=== PATIENT | male | born 1960 | race African-American/Black ===

== ENCOUNTER 2017-06-13 11:12 | Inpatient (IN) | payer OTHER ==
[2017-06-13 12:44] LABS: ADD MAN DIFF? NO
[2017-06-13 12:47] LABS: BASO # 0.1 x10^3/uL (0.0-0.2); BASO % 1 % (0-3); EOS % 0 % (0-3); HEMATOCRIT 43.5 % (39.0-53.0); HEMOGLOBIN 13.7 g/dL (13.0-17.5); LYMPH # 1.2 x10^3/uL (1.0-4.8); LYMPH % 16 % (24-48); MEAN CORPUSCULAR HEMOGLOBIN 23 pg (25-35); MEAN CORPUSCULAR HGB CONC 32 g/dL (31-37); MEAN CORPUSCULAR VOLUME 72 fL (79-100); MONO # 0.4 x10^3/uL (0.0-1.1); MONO % 6 % (0-9); NEUT # 5.8 x10^3uL (1.8-7.7); NEUT % 77 % (31-73); PLATELET COUNT 204 x10^3/uL (140-400); RED BLOOD COUNT 6.07 x10^6/uL (4.30-5.70); RED CELL DISTRIBUTION WIDTH 16.6 % (11.5-14.5); WHITE BLOOD COUNT 7.5 x10^3/uL (4.0-11.0)
[2017-06-13] MEDS: ONDANSETRON PF 4 MG/2 ML VIAL. IV (12:47)
[2017-06-13] MEDS: fentaNYL PF VIAL 100 MCG/2 ML VIAL IV ×2 (12:49→14:50)
[2017-06-13 12:51] LABS: BILIRUBIN,URINE NEGATIVE (NEG); CLARITY,URINE CLEAR; COLOR,URINE YELLOW; GLUCOSE,URINE >=1000 mg/dL (NEG); NITRITE,URINE NEGATIVE (NEG); PH,URINE 6.5; PROTEIN,URINE NEGATIVE (NEG-TRACE)
[2017-06-13 12:59] LABS: ANION GAP 10 (6-14); BLOOD UREA NITROGEN 24 mg/dL (8-26); BUN/CREATININE RATIO 24 (6-20); CALCIUM 8.6 mg/dL (8.5-10.1); CARBON DIOXIDE 25 mmol/L (21-32); CHLORIDE 104 mmol/L (98-107); GFR 93.5; GLUCOSE 220 mg/dL (70-99); POTASSIUM 4.5 mmol/L (3.5-5.1); SODIUM 139 mmol/L (136-145)
[2017-06-13 13:04] LABS: BACTERIA,URINE 0 /HPF (0-FEW); RBC,URINE 0 /HPF (0-2); SQUAMOUS EPITHELIAL CELL,UR FEW /LPF; WBC,URINE 0 /HPF (0-4)
[2017-06-13 13:05] LABS: ALBUMIN 3.9 g/dL (3.4-5.0); ALK PHOS 69 U/L (46-116); ALT (SGPT) 29 U/L (16-63); AST (SGOT) 15 U/L (15-37); TOTAL BILIRUBIN 0.5 mg/dL (0.2-1.0); TOTAL PROTEIN 7.9 g/dL (6.4-8.2)
[2017-06-13 14:08] LABS: PLT ESTIMATE ADEQUATE (ADEQUATE)
[2017-06-13 14:09] LABS: ANISOCYTOSIS SLIGHT; HYPOCHROMIA MOD; MICROCYTOSIS MOD; OVALOCYTES FEW; POIKILOCYTOSIS SLIGHT
[2017-06-13] MEDS ORDERED: ONDANSETRON PF 4 MG/2 ML VIAL. IV ×2 (14:30→15:00)
[2017-06-13] MEDS ORDERED: BISACODYL 10 MG SUPP.RECT. PR (15:00)
[2017-06-13] MEDS ORDERED: hydrALAZINE 20 MG/ML VIAL. IVP (15:00)
[2017-06-13] MEDS ORDERED: DOCUSATE SODIUM 100 MG CAPSULE. PO (15:00)
[2017-06-13] MEDS ORDERED: LACTULOSE 20 GM/30 ML SOLUTION. PO (15:00)
[2017-06-13] MEDS ORDERED: oxyCODONE/APAP 10/325 1 TAB TABLET PO (15:00)
[2017-06-13] MEDS ORDERED: MAGNESIUM HYDROXIDE 2,400 MG/30 ML ORAL.SUSP. PO ×2 (15:00→17:30)
[2017-06-13] MEDS: HEPARIN PF for SUB-Q USE 5,000 UNIT/0.5 ML VIAL. SQ ×2 (15:30→22:41)
[2017-06-13] MEDS ORDERED: methylPREDNISolone ACETATE 40 MG/ML VIAL. (17:30)
[2017-06-13] MEDS: BUPIVACAINE MPF 0.25% 10 ML VIAL. IJ (17:30)
[2017-06-13] MEDS ORDERED: BUPIVACAINE MPF 0.25% 10 ML VIAL. (17:30)
[2017-06-13] MEDS: methylPREDNISolone ACETATE 40 MG/ML VIAL. IM (17:30)
[2017-06-13] MEDS: DEXAMETHASONE SOD PHOS 4 MG/ML VIAL IV (18:00)
[2017-06-13] MEDS: MORPHINE SULFATE 4 MG/ML DISP.SYRIN. IV ×2 (18:31→22:24)
[2017-06-13] MEDS: SENNOSIDES/DOCUSATE 8.6/50MG TABLET. PO (20:57)
[2017-06-13] MEDS: FAMOTIDINE 20 MG TABLET. PO (20:57)
[2017-06-13] MEDS: HYDROcodone/APAP 10/325 1 TAB TABLET PO (20:57)
[2017-06-13] MEDS: DOCUSATE SODIUM 100 MG CAPSULE. PO (20:57)
[2017-06-14] MEDS: DEXAMETHASONE SOD PHOS 4 MG/ML VIAL IV ×4 (00:15→18:24)
[2017-06-14] MEDS: MORPHINE SULFATE 4 MG/ML DISP.SYRIN. IV ×6 (01:01→14:41)
[2017-06-14] MEDS: IBUPROFEN 800 MG TABLET. PO ×2 (01:09→14:41)
[2017-06-14] MEDS: HEPARIN PF for SUB-Q USE 5,000 UNIT/0.5 ML VIAL. SQ ×3 (05:52→22:00)
[2017-06-14 06:36] LABS: ADD MAN DIFF? NO
[2017-06-14 06:46] LABS: BASO % 1 % (0-3); EOS % 0 % (0-3); HEMATOCRIT 44.1 % (39.0-53.0); LYMPH # 1.9 x10^3/uL (1.0-4.8); LYMPH % 25 % (24-48); MEAN CORPUSCULAR HEMOGLOBIN 23 pg (25-35); MEAN CORPUSCULAR HGB CONC 32 g/dL (31-37); MEAN CORPUSCULAR VOLUME 71 fL (79-100); MONO # 0.4 x10^3/uL (0.0-1.1); MONO % 6 % (0-9); NEUT # 5.5 x10^3uL (1.8-7.7); NEUT % 69 % (31-73); PLATELET COUNT 213 x10^3/uL (140-400); RED BLOOD COUNT 6.18 x10^6/uL (4.30-5.70); RED CELL DISTRIBUTION WIDTH 16.8 % (11.5-14.5); WHITE BLOOD COUNT 7.9 x10^3/uL (4.0-11.0)
[2017-06-14 07:09] LABS: ALBUMIN 3.9 g/dL (3.4-5.0); ALK PHOS 61 U/L (46-116); ALT (SGPT) 38 U/L (16-63); ANION GAP 9 (6-14); AST (SGOT) 13 U/L (15-37); BLOOD UREA NITROGEN 25 mg/dL (8-26); BUN/CREATININE RATIO 28 (6-20); CALCIUM 8.4 mg/dL (8.5-10.1); CARBON DIOXIDE 26 mmol/L (21-32); CHLORIDE 103 mmol/L (98-107); CREATININE 0.9 mg/dL (0.7-1.3); GFR 105.6; GLUCOSE 165 mg/dL (70-99); POTASSIUM 4.4 mmol/L (3.5-5.1); SODIUM 138 mmol/L (136-145); TOTAL BILIRUBIN 0.7 mg/dL (0.2-1.0); TOTAL PROTEIN 7.9 g/dL (6.4-8.2)
[2017-06-14] MEDS: SENNOSIDES/DOCUSATE 8.6/50MG TABLET. PO ×2 (09:00→20:57)
[2017-06-14] MEDS: DOCUSATE SODIUM 100 MG CAPSULE. PO ×2 (09:00→21:00)
[2017-06-14] MEDS: ASPIRIN 325 MG TABLET PO (12:46)
[2017-06-14] MEDS: PANTOPRAZOLE 40 MG TABLET.DR. PO (12:46)
[2017-06-14] MEDS: OMEGA-3 FATTY ACIDS/FISH OIL 1,000 MG CAPSULE. PO (12:46)
[2017-06-14] MEDS: POTASSIUM CHLORIDE 20 MEQ TABLET.ER. PO (12:46)
[2017-06-14] MEDS: CHOLECALCIFEROL (VITAMIN D3) 1,000 UNIT TABLET PO (12:47)
[2017-06-14] MEDS: HYDROcodone/APAP 10/325 1 TAB TABLET PO (12:53)
[2017-06-14] MEDS ORDERED: HYDROmorphone 4 MG TABLET PO (15:45)
[2017-06-14] MEDS: fentaNYL PF VIAL 100 MCG/2 ML VIAL IV ×4 (16:01→23:14)
[2017-06-14] MEDS: FAMOTIDINE 20 MG TABLET. PO (20:57)
[2017-06-15] MEDS: HYDROcodone/APAP 10/325 1 TAB TABLET PO (00:02)
[2017-06-15] MEDS: DEXAMETHASONE SOD PHOS 4 MG/ML VIAL IV ×5 (00:02→23:28)
[2017-06-15] MEDS: fentaNYL PF VIAL 100 MCG/2 ML VIAL IV ×6 (03:18→22:12)
[2017-06-15 05:18] LABS: ADD MAN DIFF? NO
[2017-06-15 05:41] LABS: BASO % 0 % (0-3); EOS % 0 % (0-3); HEMATOCRIT 42.9 % (39.0-53.0); HEMOGLOBIN 13.5 g/dL (13.0-17.5); LYMPH # 1.7 x10^3/uL (1.0-4.8); LYMPH % 16 % (24-48); MEAN CORPUSCULAR HEMOGLOBIN 22 pg (25-35); MEAN CORPUSCULAR HGB CONC 31 g/dL (31-37); MEAN CORPUSCULAR VOLUME 71 fL (79-100); MONO # 0.6 x10^3/uL (0.0-1.1); MONO % 6 % (0-9); NEUT # 8.3 x10^3uL (1.8-7.7); NEUT % 79 % (31-73); PLATELET COUNT 200 x10^3/uL (140-400); RED BLOOD COUNT 6.03 x10^6/uL (4.30-5.70); RED CELL DISTRIBUTION WIDTH 16.7 % (11.5-14.5); WHITE BLOOD COUNT 10.6 x10^3/uL (4.0-11.0)
[2017-06-15 05:50] LABS: ANION GAP 6 (6-14); BLOOD UREA NITROGEN 22 mg/dL (8-26); CALCIUM 9.1 mg/dL (8.5-10.1); CARBON DIOXIDE 28 mmol/L (21-32); CHLORIDE 102 mmol/L (98-107); CREATININE 0.8 mg/dL (0.7-1.3); GLUCOSE 162 mg/dL (70-99); POTASSIUM 4.4 mmol/L (3.5-5.1); SODIUM 136 mmol/L (136-145)
[2017-06-15] MEDS: HEPARIN PF for SUB-Q USE 5,000 UNIT/0.5 ML VIAL. SQ ×3 (06:00→22:00)
[2017-06-15] MEDS: PANTOPRAZOLE 40 MG TABLET.DR. PO (07:30)
[2017-06-15] MEDS: POTASSIUM CHLORIDE 20 MEQ TABLET.ER. PO (08:00)
[2017-06-15] MEDS ORDERED: fentaNYL PF VIAL 100 MCG/2 ML VIAL IV ×2 (08:15→13:00)
[2017-06-15] MEDS: CHOLECALCIFEROL (VITAMIN D3) 1,000 UNIT TABLET PO (09:00)
[2017-06-15] MEDS: SENNOSIDES/DOCUSATE 8.6/50MG TABLET. PO ×2 (09:00→22:11)
[2017-06-15] MEDS: OMEGA-3 FATTY ACIDS/FISH OIL 1,000 MG CAPSULE. PO (09:00)
[2017-06-15] MEDS: DOCUSATE SODIUM 100 MG CAPSULE. PO ×2 (09:00→21:00)
[2017-06-15] MEDS ORDERED: REMIFENTANIL 2 MG VIAL. IV (10:02)
[2017-06-15] MEDS ORDERED: ROCURONIUM 50 MG/5 ML VIAL. (10:02)
[2017-06-15] MEDS ORDERED: fentaNYL PF VIAL 250 MCG/5 ML VIAL (10:02)
[2017-06-15] MEDS ORDERED: MIDAZOLAM HCL/PF 2 MG/2 ML VIAL. (10:02)
[2017-06-15] MEDS ORDERED: LABETALOL 20 MG/4 ML DISP.SYRIN. ×3 (10:03)
[2017-06-15] MEDS: IV RINGERS,LACTATED 1000ML 1,000 ML IV (10:30)
[2017-06-15] MEDS: KETOROLAC 60 MG/2 ML INJ FOR OR. (10:49)
[2017-06-15] MEDS: BACITRACIN 50,000 UNIT in IV NORMAL SALINE 1000ML BAG 1,000 ML IRR (10:49)
[2017-06-15] MEDS: THROMBIN TOPICAL 20,000 UNIT SPRAY.SYRN KIT TP (10:49)
[2017-06-15] MEDS: GELATIN SPONGE SIZE 100. (10:49)
[2017-06-15] MEDS: BUPIVAC MPF-EPI 0.5%-1:200000 30 ML VIAL. INJ (10:49)
[2017-06-15] MEDS ORDERED: MINERAL OIL/PETROLATUM,WHITE OPHTH OINT 3.5GM TUBE. (10:55)
[2017-06-15] MEDS ORDERED: DEXAMETHASONE SOD PHOS 20 MG/5 ML VIAL. (10:55)
[2017-06-15] MEDS ORDERED: PROPOFOL 50 ML IV ×2 (10:55→12:18)
[2017-06-15] MEDS ORDERED: PROPOFOL 20 ML IV (10:55)
[2017-06-15] MEDS ORDERED: ONDANSETRON PF 4 MG/2 ML VIAL. (10:55)
[2017-06-15] MEDS ORDERED: DESFLURANE > 120 MINUTES IH (10:56)
[2017-06-15] MEDS ORDERED: PHENYLEPHRINE in 0.9% NACL PF 1 MG/10 ML SYRINGE. IV (11:22)
[2017-06-15] MEDS ORDERED: NEOSTIGMINE 10 MG/10 ML VIAL. (12:41)
[2017-06-15] MEDS ORDERED: GLYCOPYRROLATE 1 MG/5 ML VIAL. (12:43)
[2017-06-15] MEDS ORDERED: LIDOCAINE 1% PF 2 ML VIAL. ID (13:00)
[2017-06-15] MEDS ORDERED: ONDANSETRON PF 4 MG/2 ML VIAL. IV (13:00)
[2017-06-15] MEDS: PROCHLORPERAZINE 10 MG/2 ML VIAL. IV (13:36)
[2017-06-15] MEDS: FAMOTIDINE 20 MG TABLET. PO (22:11)
[2017-06-16] MEDS: fentaNYL PF VIAL 100 MCG/2 ML VIAL IV ×4 (02:06→14:38)
[2017-06-16 05:21] LABS: ADD MAN DIFF? NO
[2017-06-16 05:27] LABS: BASO % 0 % (0-3); EOS % 0 % (0-3); HEMATOCRIT 39.7 % (39.0-53.0); HEMOGLOBIN 12.5 g/dL (13.0-17.5); LYMPH # 1.9 x10^3/uL (1.0-4.8); LYMPH % 16 % (24-48); MEAN CORPUSCULAR HEMOGLOBIN 22 pg (25-35); MEAN CORPUSCULAR HGB CONC 31 g/dL (31-37); MEAN CORPUSCULAR VOLUME 71 fL (79-100); MONO # 0.9 x10^3/uL (0.0-1.1); MONO % 8 % (0-9); NEUT % 76 % (31-73); PLATELET COUNT 186 x10^3/uL (140-400); RED BLOOD COUNT 5.57 x10^6/uL (4.30-5.70); RED CELL DISTRIBUTION WIDTH 16.3 % (11.5-14.5); WHITE BLOOD COUNT 11.9 x10^3/uL (4.0-11.0)
[2017-06-16 05:40] LABS: ANION GAP 6 (6-14); BLOOD UREA NITROGEN 19 mg/dL (8-26); CALCIUM 8.4 mg/dL (8.5-10.1); CARBON DIOXIDE 29 mmol/L (21-32); CHLORIDE 103 mmol/L (98-107); CREATININE 0.9 mg/dL (0.7-1.3); GFR 105.6; GLUCOSE 205 mg/dL (70-99); POTASSIUM 4.6 mmol/L (3.5-5.1); SODIUM 138 mmol/L (136-145)
[2017-06-16] MEDS: HEPARIN PF for SUB-Q USE 5,000 UNIT/0.5 ML VIAL. SQ ×2 (06:00→14:42)
[2017-06-16] MEDS: PANTOPRAZOLE 40 MG TABLET.DR. PO (06:02)
[2017-06-16] MEDS: DEXAMETHASONE SOD PHOS 4 MG/ML VIAL IV ×2 (06:02→13:15)
[2017-06-16] MEDS: HYDROcodone/APAP 10/325 1 TAB TABLET PO ×2 (09:39→14:38)
[2017-06-16] MEDS: OMEGA-3 FATTY ACIDS/FISH OIL 1,000 MG CAPSULE. PO (09:49)
[2017-06-16] MEDS: POTASSIUM CHLORIDE 20 MEQ TABLET.ER. PO (09:49)
[2017-06-16] MEDS: CHOLECALCIFEROL (VITAMIN D3) 1,000 UNIT TABLET PO (09:50)
[2017-06-16] MEDS: DOCUSATE SODIUM 100 MG CAPSULE. PO (09:50)
[2017-06-16] MEDS: SENNOSIDES/DOCUSATE 8.6/50MG TABLET. PO (09:51)
== END 2017-06-16 17:05 | disposition home or self-care (01) | DRG 552 ==
LOC: ER 11:12 → 4 NORTH 14:07
DX: M48.061 Spinal stenosis, lumbar region without neurogenic claudication (principal); E66.01 Morbid (severe) obesity due to excess calories; K21.9 Gastro-esophageal reflux disease without esophagitis; M43.10 Spondylolisthesis, site unspecified; S33.5XXA Sprain of ligaments of lumbar spine, initial encounter; Z87.891 Personal history of nicotine dependence; Z88.6 Allergy status to analgesic agent; Z88.5 Allergy status to narcotic agent; Z88.8 Allergy status to other drugs, medicaments and biological substances; Z68.36 Body mass index [BMI] 36.0-36.9, adult
CPT/HCPCS: 36415; 73565; 76000; 80048; 80053; 81001; 85025; 96374; 96375; 96376; 97161-GP; 99285; 99285-25; J0690; J0780; J1030; J1100; J1885; J2250; J2270; J2370; J2405; J2704; J2710; J3010; J3490; J7030; J7120

== ENCOUNTER → 2017-06-13 | Outpatient (CLI) | payer OTHER | END | disposition home or self-care (01) | LOC: MRI 10:07 | DX: M47.896 Other spondylosis, lumbar region (principal); M54.16 Radiculopathy, lumbar region | CPT/HCPCS: 72148 ==